=== PATIENT | female | born 1945 | race Caucasian/White ===

== ENCOUNTER 2021-08-05 15:08 | Emergency (ER) | payer BC ==
[~2021-08-05] VITALS: Ht 157.5 cm; Wt 59.0 kg
[~2021-08-05 15:08] MED LIST: ADVAIRDISKUS; HYDROCHLOROTHIA25 M2 PO; MOBIC7.5 MG PO; PREMARIN0.625 MG PO; PROVENTIL
[2021-08-05] MEDS ORDERED: COZAAR 25 MG TA25 M1 PO (15:17)
[2021-08-05 16:23] VITALS: BP 169/78
== END 2021-08-05 16:24 | disposition home or self-care (01) ==
LOC: M.ERS 15:08
DX: S51.012A Laceration without foreign body of left elbow, initial encounter (principal); T14.8XXA Other injury of unspecified body region, initial encounter; M79.644 Pain in right finger(s); M25.532 Pain in left wrist; I10 Essential (primary) hypertension; J45.909 Unspecified asthma, uncomplicated; Z79.899 Other long term (current) drug therapy; Z91.041 Radiographic dye allergy status; Z88.0 Allergy status to penicillin; W54.1XXA Struck by dog, initial encounter; Y93.89 Activity, other specified; Y92.89 Other specified places as the place of occurrence of the external cause; Y99.8 Other external cause status